=== PATIENT | female | born 1955 | race Caucasian/White ===

== ENCOUNTER 2018-02-17 16:17 | Inpatient (IN) | payer MEDICARE ==
[~2018-02-17] VITALS: Ht 160 cm; Wt 63.0 kg
[~2018-02-17 16:17] MED LIST: ARMOUR THYROID30 M1 PO; ASPIRIN325; BACTRIM DS TAB1 EACH PO; CARVEDILOL6.25 MG PO; DIOVAN HCT 80-1 EACH; HUMALOG100 UNIT/1 SUBQ; HYDROXYZINE HCL25 M1 PO; LEVOTHYROXIN0.025 MG PO; LIPITOR 20 MG T20 M1 PO; NEXIUM40 MG PO; PERCOCET 5-3251 EACH PO; PERCOCET 7.5-31 EACH PO; PLAVIX 75 MG TA75 M1 PO; PRENATAL; SIMVASTATIN40 MG; TRAMADOL 50 MG50 MG PO; VANCOCIN 125 M125 M1 PO; VITAMIN D250000 UNIT PO; XANAX 0.5 MG0.5 MG PO
[2018-02-17 16:21] VITALS: BP 240/111
[2018-02-17 16:38] LABS: ABSOLUTE EOSINOPHILS 0.1 thou/uL (0.0-0.7); ABSOLUTE LYMPHOCYTES 2.2 thou/uL (0.8-5.3); ABSOLUTE MONOCYTES 0.5 thou/uL (0.0-1.2); ABSOLUTE NEUTROPHILS 3.3 thou/uL (1.6-8.1); BASOPHILS 0.6 %; EOSINOPHILS 1.5 %; HEMATOCRIT 40.6 % (37.0-47.0); HEMOGLOBIN 14.2 gm/dL (12.0-15.0); LYMPHOCYTES 35.6 %; MCH 31.9 pg (26.0-34.0); MCHC 34.9 g/dL (28.0-37.0); MCV 91.3 fL (80.0-100.0); MONOCYTES 8.7 %; MPV 7.9 fl. (7.2-11.1); NUCLEATED RBCS 0 /100WBC; PLATELET COUNT* 223 thou/uL (150-400); POLYS 53.6 %; RBC 4.45 mil/uL (4.20-5.00); RDW-CV 12.6 % (10.5-14.5); WBC 6.2 thou/uL (4.0-11.0)
[2018-02-17 16:41] LABS: POC CA IONIZED 4.6 mg/dL (4.5-5.3); POC CREATININE 0.5 mg/dL (0.6-1.3); POC HEMOGLOBIN 14.3 g/dL (12.0-17.0)
[2018-02-17 16:52] LABS: ANION GAP 10 mmol/L (7-16); BUN 9 mg/dL (7-18); CALCIUM 9.3 mg/dL (8.5-10.1); CHLORIDE 96 mmol/L (98-107); CO2 27 mmol/L (21-32); CREATININE 0.8 mg/dL (0.6-1.3); GLUCOSE 393 mg/dL (70-99); POTASSIUM 3.9 mmol/L (3.5-5.1); PROTIME 9.6 Seconds (9.20-11.50); SODIUM 133 mmol/L (136-145)
[2018-02-17 16:56] LABS: ALBUMIN 4.1 g/dL (3.4-5.0); ALKALINE PHOSPHATASE 119 U/L (46-116); SGOT 13 U/L (15-37); SGPT 16 U/L (30-65); TOTAL BILIRUBIN 0.6 mg/dL (<0.1-1.0); TOTAL PROTEIN 8.7 g/dL (6.4-8.2); TROPONIN-I LEVEL <0.06 ng/mL (<0.06)
[2018-02-17] MEDS ORDERED: NITROGLYCERIN0.4 MG SUBLING (16:59)
[2018-02-17] MEDS ORDERED: ASPIRIN325 PO (16:59)
[2018-02-17] MEDS ORDERED: ZOLOFT50 MG PO (16:59)
[2018-02-17] MEDS ORDERED: GABAPENTIN 100100 MG PO (16:59)
[2018-02-17] MEDS ORDERED: PLAVIX 300 MG300 M1 PO (18:33)
[2018-02-17 18:46] VITALS: BP 157/70
[2018-02-17 22:00] VITALS: BP 104/83
[2018-02-17 23:41] VITALS: BP 127/51
[2018-02-18 03:50] VITALS: BP 137/57
[2018-02-18 04:36] LABS: HEMATOCRIT 33.7 % (37.0-47.0); MCH 32.1 pg (26.0-34.0); MCHC 35.3 g/dL (28.0-37.0); MCV 91.1 fL (80.0-100.0); MPV 7.9 fl. (7.2-11.1); RBC 3.7 mil/uL (4.20-5.00); RDW-CV 12.7 % (10.5-14.5); WBC 6.2 thou/uL (4.0-11.0)
[2018-02-18 04:42] LABS: CALCIUM 8.5 mg/dL (8.5-10.1); CREATININE 0.8 mg/dL (0.6-1.3); POTASSIUM 3.3 mmol/L (3.5-5.1)
[2018-02-18 04:43] LABS: HEMOGLOBIN 11.9 gm/dL (12.0-15.0)
[2018-02-18 08:00] VITALS: BP 148/54
--- NOTE | 2018-02-18 10:11 | EKG ---
[place] [address] ELECTROCARDIOGRAM REPORT Name: KATHIEDILIP Room: [address] IN R.#: [id number] Admission: 02/17/18 Attend Phys: Lucinda Cruz MD Discharge: Date of : 53 Report #: [id number] THIS REPORT FOR: //name// [facility] ED Test Date: 2018-02-17 Test Time: 16:49:45 Pat Name: DILIP VÁZQUEZ Department: Room: Gender: F [employer]il [employer] Repair: Lilliana RIOS : 1955 Requested By: Bobby Spangler Order Number: [id number] MD: Mohsen Hill Measurements Intervals [place] Rate: 84 P: 54 GA: 139 QRS: 38 QRSD: 96 T: 45 QT: 360 QTc: 426 Interpretive Statements Sinus rhythm Borderline T wave abnormalities Compared to ECG 01/16/2017 07:57:42 T-wave abnormality now present Electronically Signed On 02-18-2018 10:11:40 CDT by Mohsen Hill [email or web address] <ELECTRONICALLY SIGNED> By: Noam Hill MD, [facility] 02/18/18 1011 1649 [id number] Noam Hill MD, [facility] /EPI
[2018-02-18 12:00] VITALS: BP 130/69
[2018-02-18 16:23] VITALS: BP 124/59
[2018-02-18 20:00] VITALS: BP 146/50
[2018-02-19] VITALS (7 sets, daily range): BP systolic 120–180; BP diastolic 43–68
[2018-02-19 04:48] LABS: HEMATOCRIT 34.5 % (37.0-47.0); HEMOGLOBIN 12.1 gm/dL (12.0-15.0); MCH 31.8 pg (26.0-34.0); MCV 90.8 fL (80.0-100.0); MPV 8.2 fl. (7.2-11.1); RBC 3.8 mil/uL (4.20-5.00); RDW-CV 12.5 % (10.5-14.5); WBC 8.4 thou/uL (4.0-11.0)
[2018-02-19 05:04] LABS: ALBUMIN 2.9 g/dL (3.4-5.0); CALCIUM 8.4 mg/dL (8.5-10.1); CREATININE 0.7 mg/dL (0.6-1.3); MAGNESIUM 1.6 mg/dL (1.8-2.4); POTASSIUM 4.1 mmol/L (3.5-5.1); TOTAL BILIRUBIN 0.3 mg/dL (<0.1-1.0); TOTAL PROTEIN 5.9 g/dL (6.4-8.2)
[2018-02-19] MEDS ORDERED: COREG25 MG PO (12:27)
[2018-02-20 03:47] VITALS: BP 186/80
[2018-02-20 08:00] VITALS: BP 125/60
[2018-02-20 11:38] VITALS: BP 123/60
[2018-02-20] MEDS ORDERED: CARVEDILOL12.5 MG PO (11:49)
[2018-02-20 13:51] VITALS: BP 110/47
[2018-02-20 15:40] VITALS: BP 109/40
--- NOTE | 2018-02-20 16:47 | 2DMMODE ---
[place] [address] 2 D/M-MODE ECHOCARDIOGRAM Name: DILIP VÁZQUEZ JALIL Room: [address] IN [facility]#: [id number] Admission: 02/17/18 Attend Phys: Lucinda Cruz, Discharge: Date of : 53 Date of Service: 02/20/18 1526 Report #: [id number] THIS REPORT FOR: //name// APPROVED REPORT Study performed: 02/20/2018 14:12:20 EXAM: Comprehensive 2D, Doppler, and color-flow Echocardiogram Patient Location: In-Patient Room #: [facility] Status: routine BSA: 1.70 HR: 62 bpm BP: 125/60 mmHg Rhythm: NSR Other Information Study Quality: Good Indications CVA/TIA CAD Echo Enhancing Agent Indication: Rule out Shunt Agent(s) / Amount(s) Used: Agitated Saline 10 cc 2D Dimensions LVEF(%): 71.35 (>50%) IVSd: 11.40 (7-11mm) LVOT Diam: 19.85 (18-24mm) LVDd: 40.26 mm PWd: 10.06 (7-11mm) Ascending Ao: 24.30 (22-36mm) LVDs: 24.10 (25-40mm) Aortic Root: 26.01 mm Benz's LVEF: 71.35 % Volumes Left Atrial Volume (Systole) LA ESV Index: 27.30 mL/m2 Aortic Valve AoV Peak Ahmet.: 1.63 m/s AO Peak Gr.: 10.57 mmHg LVOT Max P.67 mmHg AO Mean Gr.: 5.25 mmHg LVOT Mean P.71 mmHg LVOT Max V: 0.96 m/[place] [address] 2 D/M-MODE ECHOCARDIOGRAM Name: DILIP VÁZQUEZ Room: [address] IN M.R.#: [id number] Admission: 02/17/18 Attend Phys: Lucinda Cruz, Discharge: Date of : 53 Date of Service: 02/20/18 1526 Report #: [id number] AO V2 VTI: 32.77 cm LVOT Mean V: 0.60 m/s EDUARDO (VTI): 1.86 cm2 LVOT V1 VTI: 19.66 cm Mitral Valve E/A Ratio: 0.97 MV Decel. Time: 242.42 ms MV E Max Ahmet.: 0.76 m/s MV PHT: 70.30 ms MVA (PHT): 3.13 cm2 TDI E/Lateral E': 9.50 E/Medial E': 10.86 Medial E' Ahmet.: 0.07 m/s Lateral E' Ahmet.: 0.08 m/s Pulmonary Valve PV Peak Ahmet.: 1.18 m/s PV Peak Gr.: 5.58 mmHg Left Ventricle The left ventricle is normal size. There is normal LV segmental wall motion. Borderline concentric left ventricular hypertrophy. Left ventricular systolic function is normal. The left ventricular ejection fraction is within the normal range. LVEF is 65%. The left ventricular diastolic function is normal. Right Ventricle The right ventricle is normal size. The right ventricular systolic function is normal. Atria The left atrium size is normal. Interatrial septum is intact without evidence of ASD or PFO. Right atrium is dilated. Aortic Valve Mild aortic valve sclerosis. No aortic regurgitation is present. No hemodynamically significant valvular aortic stenosis. Mitral Valve The mitral valve is normal in structure. Trace mitral regurgitation. No evidence of mitral valve stenosis. Tricuspid Valve The tricuspid valve is normal in structure. Trace tricuspid regurgitation. Unable to assess PA pressure[place] [address] 2 D/M-MODE ECHOCARDIOGRAM Name: DILIP VÁZQUEZ Room: [address] IN ..#: [id number] Admission: 02/17/18 Attend Phys: Lucinda Cruz, Discharge: Date of : 53 Date of Service: 02/20/18 1526 Report #: [id number] The pulmonary valve is normal in structure. Trace pulmonic regurgitation. Great Vessels The aortic root is normal in size. IVC is normal in size and collapses with >50% inspiration Pericardium There is no pericardial effusion. <Conclusion> The left ventricle is normal size. Borderline concentric left ventricular hypertrophy. Left ventricular systolic function is normal. The left ventricular ejection fraction is within the normal range. LVEF is 65%. The right ventricle is normal size. The left atrium size is normal. Mild aortic valve sclerosis. No aortic regurgitation is present. No hemodynamically significant valvular aortic stenosis. The mitral valve is normal in structure. Trace mitral regurgitation. The tricuspid valve is normal in structure. IVC is normal in size and collapses with >50% inspiration There is no pericardial effusion. There is normal LV segmental wall motion. <ELECTRONICALLY SIGNED> By: Jose Armando Heaton MD, FACC 02/20/18 1526 1526 1526 Jose Armando Heaton MD, FACC /INF
[2018-02-20 21:35] VITALS: BP 118/35
[2018-02-21 00:11] VITALS: BP 144/54
[2018-02-21 04:00] VITALS: BP 153/53
[2018-02-21 08:00] VITALS: BP 160/47
[2018-02-21 12:27] VITALS: BP 107/56
[2018-02-21 13:57] VITALS: BP 107/56
[2018-02-21 17:09] VITALS: BP 110/43
--- NOTE | 2018-02-21 21:54 | CON ---
[address] [address] CONSULTATION Name: DILIP VÁZQUEZ JALIL Room: [address] IN M.R.#: [id number] Admission: 02/17/18 Attend Phys: Lucinda Cruz MD Discharge: 02/21/18 Date of : 53 Report #: [id number] THIS REPORT FOR: //name// CC: JEANNE physician/PCP Lucinda Cruz DATE OF SERVICE: 02/17/2018 HISTORY OF PRESENT ILLNESS: This is a 62-year-old female patient who was evaluated by me as a part of the stroke protocol. I initially got the first call from Dr. Spangler, the Emergency Room physician. He indicated that the patient is emotional and gives the history that she had a stroke in the past, but he cannot find any record. He indicated that patient's symptoms started at 3:00 and she was in 3-hour window with an NIH stroke scale of 9. I was at home and I told him that I will come and see the patient, but because of [place] traffic, it will take me a while to reach this place and if she is in 3-hour window and the finding of the stroke is reasonable, then he should go ahead and give TPA to the patient if there is no exclusion criteria. He indicated that he is going to proceed with TPA after talking to the family. Then, I got second call from Dr. Spangler and he indicated that the patient and the family has changed the time and the time of onset was actually at 1:30 p.m. Therefore, she was outside the window for TPA, but she was still within the timeframe for 4-1/[address] Spangler to talk to the family and if they are agreeable and if the stoke symptoms are reasonably definite, he should proceed with TPA for 3 and 4-1/2 hour window, but if there is no exclusion criteria. Then, I got another call on my way to the hospital from Dr. Spangler and he indicated that he did not give TPA because the patient was on Plavix. I discussed with him on the phone that that is not a contraindication for TPA, but he indicated the exclusion criteria sheet indicates that is an exclusion criteria. When I came back and looked at it, it would appear that is a misunderstanding because the sheet list has an oral anticoagulant as a contraindication and Plavix is not considered an oral anticoagulant. However, she is a diabetic and she does have a prior history of stroke and that those patients were excluded in the original protocol for 4-1/2 hour and the benefits of the 4-1/2 hour is limited, but is usually given if the family wants to proceed with that. I did start to see the patient immediately, but because of [place] hour traffic and an accident on [address], it took a while for me to reach here. When I reached here, I talked to the patient's and the patient. They do not agree with everything. In fact, they do not agree with the timing, but after talking to them for a long time, it would appear that this patient's time of onset should be considered 1:30. She woke up, she was very emotional. She did not remember much. She was still able to talk. She indicates that she had numbness on the right side because of her prior stroke. She did not fully recover from it. That numbness had become worse. Her memory has also become [facility] [address] [place] [address] CONSULTATION Name: DILIP VÁZQUEZ Room: [address] IN [place]#: [id number] Admission: 02/17/18 Attend Phys: Lucinda Cruz MD Discharge: 02/21/18 Date of : 53 Report #: [id number] worse, but that was becoming better. She also indicate that she has some speech deficit again that has become worse, but now is becoming better. Her last stroke was at [facility]. During that stroke, she was given TPA. She took a long time to recover and the recovery was partial. She also has vision problem with the eyes. That has been since the last stroke, which was about 2 years ago or so. The patient does indicate that she has insulin-dependent diabetes mellitus. She has a history of CVA. She had some TIAs since then. More history in that regard is not clear. This was her relevant 14-point review of system. History has to be taken in a hurry because of the time constraint. She also has a history of neuropathy in the lower extremities. PAST MEDICAL HISTORY: Positive for stroke. FAMILY HISTORY: Negative for any early age stroke. SOCIAL HISTORY: She does not smoke. PHYSICAL EXAMINATION: The patient's examinations indicate that the patient is alert and responsive. She is very emotional still, but getting better. She can talk, but she does agitate. I do not know what her baseline is in that regard. She still think her memory is poor. Cranial nerve examination 2-12 was carried out and she does appear to having some hemianopsia. I talked to the radiologist looking at the CT scan and apparently, she does have a history of bilateral occipital lobe and left parietal lobe stroke, though I suspect these are old and she thinks it is old. She does have diminished position sense on the right side as compared to the left side, but to some extent, it is diminished on both sides. She moves right side reasonably well. She may have a slight right facial palsy. Her blood pressure is 157/70, respiration is 13, pulse is 80. Her white count was 6.2. Her sodium is trace low at 133. I reviewed the CT angiogram with the radiologist and that showed old changes, but these showed that there are no new changes and CT perfusion does not show any evidence of ischemia. I had multiple talks with the patient and the family. As mentioned above, the patient was seen by Emergency Room physician, Dr. Spangler initially. She was not in a 3-hour window for TPA. She was in 4-1/2 hour window and I had recommended proceeding with the TPA, but as mentioned above, Dr. Spangler decided not to proceed with TPA because of the patient being on Plavix in a 4-1/2 hour window because of the circumstances described above. By the time, I was called with that information, even 4-1/2 hour window would have been up to. In any event, a prior stroke in diabetic is one of the exclusion criteria for 4-1/2 hour window. I discussed with them that there is nothing intervention we can do. She is not a thrombectomy candidate, but she should be admitted. We will get a stat MRI done in this patient. I do not know why this patient [place] [address] CONSULTATION Name: STEPHAN VÁZQUEZSAM LARIOSE Room: [address] IN M.R.#: [id number] Admission: 02/17/18 Attend Phys: Lucinda Cruz MD Discharge: 02/21/18 Date of : 53 Report #: [id number] past. She has residual deficit and I am not even sure how much if any is new. She thinks she had significant aggravation of deficit, but she is either close to baseline or at the baseline. We will monitor her blood pressure closely. I will go ahead and do an MRI of the brain stat in this patient and that has already been ordered by Dr. Spangler. The patient's part of the stroke scale is from her prior deficit and from all indication, it looks like that lot of deficit is old, but I think we will work up further to see why she is having the strokes. I discussed all with the patient's family in detail. I talked to the family and they are agreeable with this plan. Thank you very much for this referral. <ELECTRONICALLY SIGNED> By: Binh Barger MD 02/21/18 2154 [id number] Barger MD /nt
--- NOTE | 2018-02-21 21:54 | EEG ---
[address] [address] EEG STUDY REPORT Name: DILIP VÁZQUEZ Room: [address] IN M.R.#: [id number] Admission: 02/17/18 Attend Phys: Lucinda Cruz MD Discharge: 02/21/18 Date of : 53 Report #: [id number] THIS REPORT FOR: //name// CC: [facility] physician/PCP Lucinda Cruz DATE OF SERVICE: 02/20/2018 This patient had an episode of speech difficulty, and she had a previous history of CVA. MRI did not demonstrate any acute CVA. EEG is being done to exclude the possibility of any nonconvulsive seizure. The patient's EEG was done by placing the electrodes by standard 10/20 system of electrode placement. Both referential and sequential montages were used for recording. Background activity in this patient's EEG was about 10 Hz and 40 microvolt. It is a symmetrical activity. The patient went to sleep that is associated with bilaterally symmetrical sleep spindle and vertex sharp waves. Photic stimulation was unremarkable. Throughout the record, no active epileptiform activity was noticed. IMPRESSION: This patient's EEG is intermixed with some theta range slowing on both sides. That is a nonspecific abnormality, which can occur with encephalopathy, effect of psychotropic medication, dementia, etc. No active epileptiform activity was noticed during this record. Thank you very much for this referral. <ELECTRONICALLY SIGNED> By: Binh Barger MD 02/21/18 2154 1615 1713PMD edis Salguero
== END 2018-02-21 17:45 | disposition home or self-care (01) | DRG 637 ==
LOC: M.ERS 16:17 → M.2W 17:54 → M.TBA-ER 17:54 → M.2W 18:44
PROVIDERS: Emergency Medicine; Psychiatry & Neurology Neuromuscular Medicine; ADMIT Internal Medicine
PROC: 4A00X4Z Measurement of Central Nervous Electrical Activity, External Approach (ICD-10-PCS; principal; 2018-02-20)
DX: E11.65 Type 2 diabetes mellitus with hyperglycemia (principal); G93.49 Other encephalopathy; E87.1 Hypo-osmolality and hyponatremia; I69.398 Other sequelae of cerebral infarction; I10 Essential (primary) hypertension; E78.5 Hyperlipidemia, unspecified; F03.90 Unspecified dementia, unspecified severity, without behavioral disturbance, psychotic disturbance, mood disturbance, and anxiety; I25.10 Atherosclerotic heart disease of native coronary artery without angina pectoris; R51 Headache; Z79.01 Long term (current) use of anticoagulants; Z98.1 Arthrodesis status; Z90.49 Acquired absence of other specified parts of digestive tract; Z79.899 Other long term (current) drug therapy; Z79.4 Long term (current) use of insulin; Z79.82 Long term (current) use of aspirin; Z88.6 Allergy status to analgesic agent; Z88.8 Allergy status to other drugs, medicaments and biological substances; Z83.3 Family history of diabetes mellitus; I69.322 Dysarthria following cerebral infarction

== ENCOUNTER 2018-03-21 21:34 | Emergency (ER) | payer OTHER ==
[~2018-03-21] VITALS: Ht 157.5 cm; Wt 59.9 kg
[~2018-03-21 21:34] MED LIST changes: +ASPIRIN325 PO; +CARVEDILOL12.5 MG PO; +COREG25 MG PO; +GABAPENTIN 100100 MG PO; +NITROGLYCERIN0.4 MG SUBLING; +PLAVIX 300 MG300 M1 PO; +ZOLOFT50 MG PO
[2018-03-21] MEDS ORDERED: HYDROCODON-ACE1 EAC7 PO (22:36)
[2018-03-21 22:40] VITALS: BP 199/47
== END 2018-03-21 22:40 | disposition home or self-care (01) ==
LOC: M.ERS 21:34
DX: S92.511A Displaced fracture of proximal phalanx of right lesser toe(s), initial encounter for closed fracture (principal); E11.9 Type 2 diabetes mellitus without complications; I10 Essential (primary) hypertension; Z90.49 Acquired absence of other specified parts of digestive tract; Z86.73 Personal history of transient ischemic attack (TIA), and cerebral infarction without residual deficits; Z79.4 Long term (current) use of insulin; Z88.5 Allergy status to narcotic agent; Z88.8 Allergy status to other drugs, medicaments and biological substances; X58.XXXA Exposure to other specified factors, initial encounter; Y93.89 Activity, other specified; Y92.89 Other specified places as the place of occurrence of the external cause; Y99.8 Other external cause status

== ENCOUNTER 2018-05-29 03:53 | Inpatient (IN) | payer OTHER ==
[~2018-05-29] VITALS: Ht 160 cm; Wt 59.0 kg
[~2018-05-29 03:53] MED LIST changes: +HYDROCODON-ACE1 EAC7 PO
[2018-05-29 03:56] VITALS: BP 221/84
[2018-05-29 04:18] LABS: ABSOLUTE EOSINOPHILS 0.1 thou/uL (0.0-0.7); ABSOLUTE LYMPHOCYTES 3.2 thou/uL (0.8-5.3); ABSOLUTE MONOCYTES 0.6 thou/uL (0.0-1.2); ABSOLUTE NEUTROPHILS 2.4 thou/uL (1.6-8.1); BASOPHILS 0.6 %; EOSINOPHILS 1.1 %; HEMATOCRIT 35.4 % (37.0-47.0); HEMOGLOBIN 12.4 gm/dL (12.0-15.0); LYMPHOCYTES 50.3 %; MCH 32.1 pg (26.0-34.0); MCHC 35.1 g/dL (28.0-37.0); MCV 91.3 fL (80.0-100.0); MONOCYTES 9.3 %; MPV 7.9 fl. (7.2-11.1); NUCLEATED RBCS 0 /100WBC; PLATELET COUNT* 206 thou/uL (150-400); POLYS 38.7 %; RBC 3.88 mil/uL (4.20-5.00); WBC 6.3 thou/uL (4.0-11.0)
[2018-05-29 04:27] LABS: ANION GAP 7 mmol/L (7-16); BUN 16 mg/dL (7-18); CALCIUM 8.9 mg/dL (8.5-10.1); CHLORIDE 97 mmol/L (98-107); CO2 29 mmol/L (21-32); CREATININE 0.8 mg/dL (0.6-1.3); GLUCOSE 404 mg/dL (70-99); POTASSIUM 4.1 mmol/L (3.5-5.1); SODIUM 133 mmol/L (136-145)
[2018-05-29 04:37] LABS: ALBUMIN 3.9 g/dL (3.4-5.0); ALKALINE PHOSPHATASE 97 U/L (46-116); LIPASE 82 U/L (73-393); MAGNESIUM 1.6 mg/dL (1.8-2.4); NT-PRO BRAIN NAT PEPTIDE 345 pg/mL (<300); SGOT 14 U/L (15-37); SGPT 21 U/L (30-65); TOTAL BILIRUBIN 0.3 mg/dL (<0.1-1.0); TOTAL PROTEIN 7.6 g/dL (6.4-8.2); TROPONIN-I LEVEL <0.06 ng/mL (<0.06)
--- NOTE | 2018-05-29 07:20 | NUR ---
DR. MENDOZA IN PT ROOM
[2018-05-29 08:30] VITALS: BP 108/46
[2018-05-29 08:32] VITALS: BP 181/49
--- NOTE | 2018-05-29 10:45 | EKG ---
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[facility] : 1955 Requested By: Minh Harp Order Number: [id number] MD: Francis Bueno Measurements Intervals [place] Rate: 69 P: 74 ND: 149 QRS: 40 QRSD: 78 T: 86 QT: 460 QTc: 493 Interpretive Statements Sinus rhythm Nonspecific T abnormalities, lateral leads Borderline prolonged QT interval Compared to ECG 02/17/2018 16:49:45 No significant changes Electronically Signed On 05-29-2018 10:45:44 CDT by Francis Bueno [email or web address] <ELECTRONICALLY SIGNED> By: Francis Bueno MD, [facility] 05/29/18 1045 0358 0358 Francis Bueno MD, [facility] /EPI
[2018-05-29 12:00] VITALS: BP 173/72
--- NOTE | 2018-05-29 13:06 | NUR ---
WOUND CARE NOTE: CONSULT RECEIVED FOR RLE 3RD DIGIT WOUND. PATIENT PRESENTS WITH A FULL THICKNESS ULCERATION TO THE MEDIAL ASPECT OF THE RIGHT 3RD TOE. PATIENT ADMITS THAT THIS WOUND HAS BEEN PRESENT FOR SEVERAL WEEKS. WOUND MEASURES 0.2X0.2X0.2. RED, MOIST WOUND BED. DRIED SANGUINEOUS DRAINAGE NOTED ON RESHMA-WOUND SKIN. ABLE TO CLEANSE OFF. DISTAL ASPECT OF RESHMA-WOUND WITH SKIN FLAP. CLEANSED WOUND WITH WOUND CLEANSER, PATTED DRY. APPLIED OPTIFOAM AG. PALPABLE PEDAL PULSES. HAIR GROWTH NOTED. PATIENT ADMITS TO HAVING HIGH BLOOD SUGARS, EVEN BEFORE SHE WAS ADMITTED TO THE HOSPITAL. EDUCATED PATIENT ON NOT DOING FOOT SOAKS. PATIENT STATED SHE DOES THEM AT HOME, COMMUNICATED UNDERSTANDING ON EDUCATION. RECOMMEND TIGHT BLOOD GLUCOSE CONTROL FOLLOW UP IN WOUND CENTER UPON DISCHARGE ENCOURAGE GOOD NUTRTION/HYDRATION
[2018-05-29 16:19] VITALS: BP 133/37
--- NOTE | 2018-05-29 16:24 | CARDNUC ---
[place] [address] CARDIAC NUCLEAR IMAGING REPORT Name: KATHIEDILIP JALIL Room: [address] IN [facility]#: [id number] Admission: 05/29/18 Attend Phys: Sammy Camp, Discharge: Date of : 53 Date of Service: 05/29/18 1623 Report #: [id number] THIS REPORT FOR: //name// APPROVED REPORT Imaging Protocol: Rest Tc-99m/Stress Tc-99m 1 day Study performed: 05/29/2018 10:56:00 Indication: Chest pain Patient Location: In-Patient Room #: 227 Stress Tech: Vikki Dueñas Stress Nurse: Sarah Gan RN NM Tech:MOHAMUD Pendleton Ht: 5 ft 3 in Wt: 130 lbs BSA: 1.61 m2 HR: 59 bpm BP: 193/85/ mmHg BMI: 23.02 Rhythm: NSR Medical History Medical History: CAD s/p CABG, Hyperlipidemia, HTN, CAD s/p AL Allergies: CODEINE, ZOMEG Cardiac Risk Factors: HTN, Hyperlipidemia Previous Cardiac Procedures: CABG, PCI, Myocardial infarction Exercise History: Sedentary Physical Disabilities: Knees Resting Data Rest SPECT myocardial perfusion imaging was performed in supine position 30 minutes following the intravenous injection of 12.0 mCi of Tc-99m Sestamibi. Time of rest injection: 1350 Date: 05/29/2018 Time of rest imagin The images were gated to evaluate regional wall motion and calculate left ventricular ejection fraction. Administration Route: IV Pharmacologic Stress Pharmacologic stress test was performed by injecting Regadenoson 0.4 mg IV push over 10-15 seconds immediately followed by the intravenous injection of 34.1 mCi of Tc-99m Sestamibi. Time of stress injection: 1525 [place] [address] CARDIAC NUCLEAR IMAGING REPORT Name: DILIP VÁZQUEZ Room: [address] IN ..#: [id number] Admission: 05/29/18 Attend Phys: Sammy Camp, Discharge: Date of : 53 Date of Service: 05/29/18 1623 Report #: [id number] Time of stress imagin Administration Route: IV Gated Stress SPECT was performed 40 minutes after stress injection. The images were gated to evaluate regional wall motion and calculate left ventricular ejection fraction. Stress only was performed in the Supine position. Stress Test Details Stress Test: Pharmacologic stress testing performed using 0.4 mg of regadenoson per 5 mL given IV over 10 seconds. Reason for pharmacologic stress test: physical limitation. HR Max Heart Rate (APMHR): 157 bpm Resting HR: 59 bpm Target HR (85% APMHR): 133 bpm Recovery HR: 69 bpm HR response to stress: Normal HR response to stress BP Resting BP: 193/85 mmHg Recovery BP: 114/56 mmHg BP response to stress: Normal blood pressure response to stress. ECG Resting ECG: , Sinus Rhythm, NSSTT changes Stress ECG: Sinus Rhythm ST Change: None Recovery ECG: Sinus Rhythm, NSSTT changes Recovery ST Change: None Clinical Reason for Termination: Completed protocol Stress Symptoms: Headache Exercise capacity: 1.00 METs Stress ECG Conclusion negative ecg Study Quality Study: Good Artifact: No artifact Study Data At rest, the left ventricular ejection fraction was 65%.. [place] [address] CARDIAC NUCLEAR IMAGING REPORT Name: DILIP VÁZQUEZ Room: [address] IN [facility]#: [id number] Admission: 05/29/18 Attend Phys: Sammy Camp, Discharge: Date of : 53 Date of Service: 05/29/18 1623 Report #: [id number] Post stress, the left ventricular ejection was 71%.. SSS: 9 SRS: 2 SDS: 7 TID = 1.17. Perfusion Review of rest data reveals normal perfusion, without perfusion defects.Imaging obtained following vasodilator stress demonstrate a similar, uniform uptake of tracer without defects. LVEDV is normal.No segental wall motion abnormality seen. Images were reviewed using Metaset[employer]. Wall Motion normal all segments Nuclear Conclusion ECG Findings: negative for ischemia Clinical Findings: negative for ischemia Nuclear Findings: negative for ischemia Exercise Capacity: not assessed Left Ventricular Function: normal Risk Study: low Negative perfusion nuclear stress test for ischemia/infarct. <Conclusion> negative ecg <ELECTRONICALLY SIGNED> By: Oziel Eddy MD, FACC 05/29/18 1623 1623 1623 Oziel Eddy MD, FACC /INF
--- NOTE | 2018-05-29 18:45 | NUR ---
PT VSS THIS SHIFT, DIASTOLIC BP IS LOW, BUT PT STATES THIS IS BASELINE. PT UP WITH 1 THIS SHIFT-PT UNSTEADY AND SHUFFLES. PT REPORTS USING CANE WITH AMBULATION AT HOME. WALKER IN PT ROOM. PT WENT FOR STRESS TEST AND MRI THIS SHIFT, STRESS TEST RESULTS WERE NEGATIVE-DR MENDOZA INFORMED. PT TOLERATING DIET THIS EVENING AND ATE BOTH A BOXED LUNCH AND DINNER WHEN IT ARRIVED. PT HAS 1+ PULSES ON BILATERAL UPPER AND LOWER EXTREMITIES. PT INSULIN HELD DUE TO NPO STATUS PRIOR TO PROCEDURE. PT REPORTS DULL ACHING CHEST PAIN, BUT STATES IT IS TOLERABLE WITH THE PAIN MEDICATIONS. PT IS SR ON THE MONITOR THIS SHIFT PT ABLE TO AMBULATE TO BATHROOM WITH STAFF AND FALL PXN IN PLACE. WILL CONTINUE TO ASSESS AND MONITOR.
[2018-05-29 20:28] VITALS: BP 151/62
[2018-05-30] VITALS: BP 101/40
[2018-05-30 04:00] VITALS: BP 121/46
[2018-05-30 05:03] LABS: HEMATOCRIT 35.2 % (37.0-47.0); HEMOGLOBIN 12.1 gm/dL (12.0-15.0); MCH 31.8 pg (26.0-34.0); MCHC 34.5 g/dL (28.0-37.0); MCV 92.1 fL (80.0-100.0); MPV 8.4 fl. (7.2-11.1); RBC 3.82 mil/uL (4.20-5.00); WBC 8.5 thou/uL (4.0-11.0)
--- NOTE | 2018-05-30 05:27 | NUR ---
PT CURRENTLY RESTING COMFORTABLE IN BED. PT ABLE TO AMBULATE TO BATHROOM EARLIER, WEAK BUT NO C/O SOB. PT SR/SB ON MONITOR. BEEN MONITORING PT BLOOD GLUCOSE Q4H.
[2018-05-30 05:39] LABS: CALCIUM 8.8 mg/dL (8.5-10.1); MAGNESIUM 1.6 mg/dL (1.8-2.4); POTASSIUM 4.3 mmol/L (3.5-5.1)
[2018-05-30 08:00] VITALS: BP 117/59
--- NOTE | 2018-05-30 11:15 | CON ---
[address] [address] CONSULTATION Name: OSIEL VÁZQUEZA JALIL Room: [place] [address] ADM IN M.R.#: [id number] Admission: 05/29/18 Attend Phys: Sammy Camp MD Discharge: Date of : 53 Report #: [id number] THIS REPORT FOR: //name// CC: Sammy Mccollum DATE OF SERVICE: 05/29/2018 HISTORY OF PRESENT ILLNESS: The patient is a 62-year-old white female who I was asked to see in the hospital today after she complained of chest pain. All of the old records are not available. The history was obtained from the patient who has some memory loss. The patient has a long history of diabetes, hypertension, and hyperlipidemia. She had a history of coronary artery stents. She eventually underwent 2-vessel bypass surgery at [place] in 2006. She has been followed by a receiver bulk system at [place] since that time. She has also had a previous stroke. She is not very active because of the stroke. She was doing well until last night, she awakened and had a tightness in her chest and some left arm discomfort. She notes some shortness of breath, but no diaphoresis. She took a nitroglycerin that did not seem to help. Her brought her to the emergency room last night where she was admitted. She denied the pain being related to food. She has had no belch with the episode. She has had no recent fever. She has been coughing some. The pain was not related to coughing. She has had no blood in stool. She denied any trauma to her chest or rash. She does become short of breath with exertion. She notes occasional fluttering in her heart, but no recent syncope. PAST MEDICAL HISTORY: Significant for hysterectomy, bladder tack, cataract surgery, cholecystectomy, ankle surgery, hypertension, diabetes, and hyperlipidemia. She had a previous stroke a couple of years ago with right-sided weakness. MEDICATIONS: Include aspirin, Lipitor, carvedilol, Plavix, insulin, Synthroid, and sertraline. ALLERGIES: She has intolerance to CODEINE. FAMILY HISTORY: Positive for heart disease. SOCIAL HISTORY: She is . She lives with her in [place]. No smoking or alcohol abuse. REVIEW OF SYSTEMS: She has had no history of asthma, peptic ulcer disease, or liver disease. She has had kidney stones. No cancer. No psychiatric illness. PHYSICAL EXAMINATION: [address] [place] [address] CONSULTATION Name: DILIP VÁZQUEZ Room: [address] IN [facility]#: [id number] Admission: 05/29/18 Attend Phys: Sammy Camp MD Discharge: Date of : 53 Report #: [id number] GENERAL: Revealed an elderly female, lying in bed, she appeared in no distress. VITAL SIGNS: Blood pressure was 140/80, pulse 60, she is afebrile. HEENT: She was anicteric. Conjunctivae are pink. Mucous members are moist. NECK: Veins nondistended. No carotid bruits. Neck is supple. CHEST: Clear to auscultation. HEART: Regular rate and rhythm. ABDOMEN: Soft and nontender. EXTREMITIES: Had no edema. Dorsalis pedis pulse 1+ bilaterally. SKIN: Cool and dry. NEUROLOGIC: Nonfocal. LYMPH: No adenopathy. MUSCULOSKELETAL: No joint effusion. ECG showed a sinus rhythm, nonspecific T-wave changes, appeared to be QT prolongation. Her workup, she had portable chest x-ray that showed no acute abnormality. Previous lab work, sodium 133, potassium 4.1, BUN 16, creatinine 0.8. Liver function studies were normal. Troponin 0.06. BNP 345. TSH 6.0. Her white blood cell count 6.3 and hemoglobin 12.4. IMPRESSION AND RECOMMENDATIONS: 1. Chest pain. Recommend Lexiscan Cardiolite. 2. Previous coronary artery bypass surgery. 3. Previous stroke. The patient is on aspirin and Plavix. 4. Hypertension. The patient is on a beta jhonny. 5. Hyperlipidemia. The patient is on a statin drug. 6. Diabetes. 7. History of kidney stones. <ELECTRONICALLY SIGNED> By: Francis Bueno MD, [facility] 05/30/18 1115 1015 [id number] Bueno MD, [facility] /nt
[2018-05-30 11:37] VITALS: BP 125/55
--- NOTE | 2018-05-30 13:28 | NUR ---
Nutrition: Pt seen for nsg risk 2 points. Pt stated she has lost ~40# in one year d/t less of an appetite. She stated she has had some vomiting after meals as well, but not for a couple of weeks now. She feels her wt has leveled off. She likes the weight she is at and is glad she lost some wt. Current wt: 130#. BMI: 23. Alb 3.9, BG 200s now 115. Toe wound. RX: insulin. H/o uncontrolled DM, CVA, HTN, memory loss. She stated her appetite is good now. She had lunch in front of her during visit, but had not started eating yet. No nutrition interventinos needed at this time. She stated she would follow up with her PCP if the vomiting started again. Mild risk.
[2018-05-30 15:24] VITALS: BP 82/55
--- NOTE | 2018-05-30 15:47 | NUR ---
CM SPOKE TO THE PATIENT TO DISCUSS HOME SITUATION, DISCHARGE PLANNING, AND TO INFORM OF THE ROLE OF CM. PATIENT ALERT, ORIENTED, AND INDEPENDENT WITH ADL'S. PATIENT RESIDES AT HOME WITH SPOUSE. PATIENT OWNS A CANE AND INFORMS THAT SHE USES IT OCCATIONALLY. PATIENT HAS A HX OF HH, BUT COULD NOT RECALL THE NAME. CM WILL REMAIN AVIALABLE TO ASSIST AND FOLLOW NEEDED.
--- NOTE | 2018-05-30 16:00 | NUR ---
BP LOW. ASYMPTOMATIC
--- NOTE | 2018-05-30 16:50 | NUR ---
PT UP IN ROOM WITH SB ASSIST. PT DENIES CP OR SOA. PT REPORTS LEFT ARM PAIN. TOLERATING PO WELL. NSR ON MONITOR
[2018-05-30 19:30] VITALS: BP 108/66
[2018-05-31] VITALS: BP 114/49
[2018-05-31 04:00] VITALS: BP 130/63
--- NOTE | 2018-05-31 08:03 | NUR ---
RECEIVED REPORT AND ASSUMED CARE AT 1900. VSS. CARDIAC MONITORING IN PLACE. PT REPORTED CHRONIC PAIN FROM HER NEUROPATHY. DENIED NEED FOR PRN PAIN MEDICATION. ASSESSMENT COMPLETED CHARTED. DISCUSSED PLAN OF CARE WITH PT, VERBALIZED UNDERSTANDING. MEDICATION ADMIN PER EMAR. PT UP AD ALISIA IN ROOM, ON RA. PT REPORTED DIARRHEA R/T HER HX OF IBS. STATED THERE WAS NOTHING THAT SHE TAKES TO RESOLVE, JUST HAVE TO "LET IT RUN IT'S COURSE". BED LOCKED IN LOWEST POSITION, CALL LIGHT WITHIN REACH. HOURLY ROUNDING COMPLETED AND ALL NEEDS MET. NURSING WILL CONTINUE TO MONITOR
[2018-05-31 08:40] VITALS: BP 161/66
--- NOTE | 2018-05-31 10:18 | NUR ---
RECEIVED REPORT FROM [facility]ITH AND ASSUMED CARE OF PT @ 0934.PT IS A/O,VSS,TRACING SR ON THE MONITOR.LUNG SOUNDS ARE CLEAR.LAST BM WAS TODAY.PT STATES SHE IS HAVING MULTIPLE LOOSE STOOLS BUT IS NORMAL FOR HER TO HAVE FLARE UPS.IV PATENT AND SALINE LOCKED.PT IS CALM AND COOPERATIVE WITH C/O PAIN IN FOOT-RELIEF WITH MEDICATIONS.PT IS UP SBA IN ROOM.PT LEFT RESTING AT EDGE OF BED WITH CALL LIGHT AND FALL PRECAUTIONS IN PLACE.WILL CONTINUE TO MONITOR.
[2018-05-31] MEDS ORDERED: SYNTHROID50 MCG PO (11:29)
[2018-05-31 12:05] VITALS: BP 104/40
[2018-05-31 12:12] VITALS: BP 104/40
--- NOTE | 2018-05-31 12:13 | NUR ---
ORDERS NOTED FOR DC HOME WITH HH. MET WITH PT, SHE HAD NO PREFERENCE FOR HH, DISCUSSED OPTIONS, [facility]OSE [facility]. CALLED AND FAXED ORDERS TO THEM. PT HAS WALKER AND CANE AT HOME. DENIES OTHER NEEDS
--- NOTE | 2018-05-31 16:41 | NUR ---
PT OK FOR DISCHARGE.PAPERWORK COMPLETED AND GIVEN TO PT.SCRIPTS GIVEN WITH EDUCATION.IV REMOVED.HEART MONITOR REMOVED AND RETURNED TO NURSING STATION.ALL PERSONAL BELONGINGS PACKED AND TAKEN WITH PT.HOME HEALTH SET UP BY CASE MANAGEMENT.PT WAITING IN ROOM FOR RIDE.
--- NOTE | 2018-06-05 17:33 | CON ---
[address] [address] CONSULTATION Name: DILIP VÁZQUEZ Room: [address] IN M.R.#: [id number] Admission: 05/29/18 Attend Phys: Sammy Camp MD Discharge: 05/31/18 Date of : 53 Report #: [id number] THIS REPORT FOR: //name// CC: Sammy Camp [facility] DATE OF SERVICE: 05/29/2018 HISTORY OF PRESENT ILLNESS: This is a 62-year-old female patient for whom a Neurology consultation was requested because the patient indicates her memory is not very good. She indicated it is going on for several weeks. She does not know whether short-term and long-term memory is particularly affected. It is also associated with some generalized malaise. She was admitted because she was having chest pain which was radiating to the left upper extremity. She has a history of coronary artery disease in the past. In fact, she had a bypass surgery. REVIEW OF SYSTEMS: Positive for being diabetic. She says that she has some ulcer on the foot. She has a history of hypertension and her blood pressure was increased here. She had a problem with the neck in the past. She had bladder surgery in the past. She has a history of TIA in the past, but is not a very well-defined history. She is on Zoloft, but she does not know whether she is depressed or not. She does have a history of hypothyroidism. This was her relevant 14-point review of system. Rest of the 14-point review of system was carried out and was noncontributory. PAST MEDICAL HISTORY: Positive for hypertension. FAMILY HISTORY: Negative for early age strokes. SOCIAL HISTORY: She does not smoke or drink alcohol. PHYSICAL EXAMINATION: Indicate she is alert and responsive. She can tell me what month it is. She could not tell me the exact date. She can name the president. Her speech looks intact. She is oriented. Cranial nerve examination 2-12 looks unremarkable. Strength, sensation, reflexes and tone is symmetrical. There is no cerebellar sign. There is no papilledema. There is no meningeal sign. She is a moderately well-developed individual who does not have any dysmorphic features of eyes, ears and face. Her vision and hearing looks adequate. Cardiac examination is unremarkable. No respiratory difficulty or rhonchi was noticed. Her pulses are palpable. She has no edema, cyanosis or jaundice. Blood pressure is 108/46, pulse is 61, temperature is 97.7. LABORATORY DATA: Indicate a white count of 6.3 and sodium is a trace low at 133. Her TSH is trace high. [place] [address] CONSULTATION Name: DILIP VÁZQUEZ Room: [address] IN M.R.#: [id number] Admission: 05/29/18 Attend Phys: Sammy Camp MD Discharge: 05/31/18 Date of : 53 Report #: [id number] IMPRESSION: It is unlikely that there is any neurological etiology for the patient's generalized fatigue. I agree with workup, the systemic problems as well as any cardiac etiology for the patient's chest pain. She is complaining of memory disturbances and because of that it will be desirable to get the MRI done. I discussed that aspect with the patient and the patient does want to proceed with it and I will get an MRI done. We will see what it shows. She is going to have a history professor see her. She wanted some Valium before the MRI and I discussed the potential side effect and she wants to take that. We will go ahead and give her Valium to see how she does with it. Thank you very much for this referral. <ELECTRONICALLY SIGNED> By: Binh Barger MD 06/05/18 1733 1206 [id number] Barger MD /nt
== END 2018-05-31 17:30 | disposition home health service (06) | DRG 637 ==
LOC: M.ERS 03:53 → M.2W 04:48 → M.TBA-ER 04:48 → M.2W 08:24
PROVIDERS: Emergency Medicine Emergency Medical Services; Internal Medicine; ADMIT Internal Medicine
DX: E11.00 Type 2 diabetes mellitus with hyperosmolarity without nonketotic hyperglycemic-hyperosmolar coma (NKHHC) (principal); G93.41 Metabolic encephalopathy; K21.9 Gastro-esophageal reflux disease without esophagitis; I10 Essential (primary) hypertension; L89.892 Pressure ulcer of other site, stage 2; I25.10 Atherosclerotic heart disease of native coronary artery without angina pectoris; I16.0 Hypertensive urgency; R41.3 Other amnesia; E03.9 Hypothyroidism, unspecified; E11.40 Type 2 diabetes mellitus with diabetic neuropathy, unspecified; E78.5 Hyperlipidemia, unspecified; Z95.1 Presence of aortocoronary bypass graft; Z86.73 Personal history of transient ischemic attack (TIA), and cerebral infarction without residual deficits; Z95.5 Presence of coronary angioplasty implant and graft; Z87.442 Personal history of urinary calculi; Z98.1 Arthrodesis status; Z87.81 Personal history of (healed) traumatic fracture; Z90.49 Acquired absence of other specified parts of digestive tract; Z79.4 Long term (current) use of insulin; Z79.02 Long term (current) use of antithrombotics/antiplatelets; Z79.82 Long term (current) use of aspirin; Z79.899 Other long term (current) drug therapy; Z88.8 Allergy status to other drugs, medicaments and biological substances

== ENCOUNTER 2021-05-30 18:52 | Observation (INO) | payer MEDICARE ==
[~2021-05-30] VITALS: Ht 157.5 cm; Wt 62.1 kg
[~2021-05-30 18:52] MED LIST changes: +SYNTHROID50 MCG PO
[2021-05-30 18:59] VITALS: BP 130/45
[2021-05-30 19:38] LABS: ABSOLUTE BASOPHILS 0.1 thou/uL (0.0-0.2); ABSOLUTE NEUTROPHILS 10.9 thou/uL (1.6-8.1); BASOPHILS 0.6 %; EOSINOPHILS 0.1 %; HEMATOCRIT 32.8 % (37.0-47.0); HEMOGLOBIN 11.2 gm/dL (12.0-15.0); LYMPHOCYTES 7.6 %; MCH 30.9 pg (26.0-34.0); MCHC 34.3 g/dL (28.0-37.0); MCV 90.3 fL (80.0-100.0); MONOCYTES 8.1 %; MPV 7.8 fl. (7.2-11.1); NUCLEATED RBCS 0 /100WBC; PLATELET COUNT* 231 thou/uL (150-400); POLYS 83.6 %; RBC 3.63 mil/uL (4.20-5.00); RDW-CV 13.8 % (10.5-14.5)
[2021-05-30 19:46] LABS: CALCIUM 8.8 mg/dL (8.5-10.1); CREATININE 0.9 mg/dL (0.6-1.3); POTASSIUM 3.7 mmol/L (3.5-5.1)
[2021-05-30 19:50] LABS: ALBUMIN 3.5 g/dL (3.4-5.0); TOTAL PROTEIN 7.5 g/dL (6.4-8.2)
[2021-05-30 20:23] LABS: URINE BILIRUBIN NEGATIVE (Negative); URINE BLOOD TRACE (Negative); URINE CLARITY CLEAR; URINE COLOR YELLOW; URINE GLUCOSE-RANDOM TRACE (Negative); URINE KETONES 1+ (Negative); URINE LEUKOCYTES-REFLEX TRACE (Negative); URINE NITRITE-REFLEX NEGATIVE (Negative); URINE PROTEIN NEGATIVE (Negative)
[2021-05-30 20:33] LABS: HYALINE CASTS >10 Many /LPF (None Seen); SQUAMOUS 0-3 Few /LPF (0-3)
[2021-05-30 20:34] LABS: BACTERIA-REFLEX 1-9 Few /HPF (None Seen); MUCUS 0-3 Light strn/LPF (None Seen)
[2021-05-30 20:35] LABS: AMORPHOUS PHOSPHATES Few /LPF (None Seen); URINE RBC 0-2 Rare /HPF (0-2); URINE WBC-REFLEX 6-15 Few /HPF (0-5)
[2021-05-30 22:57] VITALS: BP 133/72
[2021-05-31] VITALS (8 sets, daily range): BP systolic 117–170; BP diastolic 35–80
[2021-06-01 02:30] VITALS: BP 116/49
[2021-06-01 06:00] VITALS: BP 150/65
[2021-06-01] MEDS ORDERED: SENEXON-S 50-81 EACH PO (11:07)
[2021-06-01] MEDS ORDERED: MIRALAX17 GM PO (11:07)
[2021-06-01] MEDS ORDERED: LANTUS100 UNIT/M SUBQ (11:07)
[2021-06-01 11:52] VITALS: BP 181/73
[2021-06-01 18:02] VITALS: BP 181/73
[2021-06-01 18:11] VITALS: BP 159/60
== END 2021-06-01 18:08 | disposition home or self-care (01) ==
LOC: M.ERS 18:52 → M.TBA-ER 21:30
PROVIDERS: Physician Assistant; ADMIT Internal Medicine; ATTEND Internal Medicine
DX: K56.41 Fecal impaction (principal); K52.9 Noninfective gastroenteritis and colitis, unspecified; Z20.822 Contact with and (suspected) exposure to COVID-19; I25.10 Atherosclerotic heart disease of native coronary artery without angina pectoris; E11.9 Type 2 diabetes mellitus without complications; I10 Essential (primary) hypertension; Z79.4 Long term (current) use of insulin; Z86.73 Personal history of transient ischemic attack (TIA), and cerebral infarction without residual deficits; Z90.49 Acquired absence of other specified parts of digestive tract; Z98.890 Other specified postprocedural states; Z79.899 Other long term (current) drug therapy; Z79.02 Long term (current) use of antithrombotics/antiplatelets; Z88.5 Allergy status to narcotic agent; Z88.8 Allergy status to other drugs, medicaments and biological substances

== ENCOUNTER 2021-06-11 07:48 | Emergency (ER) | payer MEDICARE ==
[~2021-06-11] VITALS: Ht 157.5 cm; Wt 63.5 kg
[~2021-06-11 07:48] MED LIST changes: +LANTUS100 UNIT/M SUBQ; +MIRALAX17 GM PO; +SENEXON-S 50-81 EACH PO
[2021-06-11 10:38] LABS: ABSOLUTE LYMPHOCYTES 1.5 thou/uL (0.8-5.3); ABSOLUTE MONOCYTES 0.5 thou/uL (0.0-1.2); ABSOLUTE NEUTROPHILS 5.5 thou/uL (1.6-8.1); BASOPHILS 0.5 %; EOSINOPHILS 0.5 %; HEMATOCRIT 37.5 % (37.0-47.0); HEMOGLOBIN 12.7 gm/dL (12.0-15.0); LYMPHOCYTES 19.9 %; MCH 30.9 pg (26.0-34.0); MCHC 33.8 g/dL (28.0-37.0); MCV 91.5 fL (80.0-100.0); MONOCYTES 6.4 %; MPV 7.3 fl. (7.2-11.1); NUCLEATED RBCS 0 /100WBC; PLATELET COUNT* 210 thou/uL (150-400); POLYS 72.7 %; RDW-CV 14.6 % (10.5-14.5); WBC 7.6 thou/uL (4.0-11.0)
[2021-06-11 10:46] LABS: CALCIUM 9.3 mg/dL (8.5-10.1); CREATININE 0.8 mg/dL (0.6-1.3); POTASSIUM 4.6 mmol/L (3.5-5.1)
[2021-06-11 10:50] LABS: ALBUMIN 3.8 g/dL (3.4-5.0); TOTAL BILIRUBIN 0.5 mg/dL (<0.1-1.0); TOTAL PROTEIN 8.3 g/dL (6.4-8.2)
[2021-06-11 12:43] LABS: URINE BILIRUBIN NEGATIVE (Negative); URINE BLOOD TRACE (Negative); URINE CLARITY CLEAR; URINE COLOR YELLOW; URINE GLUCOSE-RANDOM 1+ (Negative); URINE KETONES 1+ (Negative); URINE LEUKOCYTES-REFLEX NEGATIVE (Negative); URINE NITRITE-REFLEX NEGATIVE (Negative); URINE PROTEIN NEGATIVE (Negative); URINE SPECIFIC GRAVITY 1.025 (1.005-1.030); URINE UROBILINOGEN 0.2 E.U./dl (0.2-1.0)
[2021-06-11 13:10] VITALS: BP 147/62
--- NOTE | 2021-06-11 16:23 | EKG ---
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: : 1955 Requested By: Elaine Oneill Order Number: [id number] MD: Jose Armando Heaton Measurements Intervals [place] Rate: 77 P: 71 CA: 144 QRS: 27 QRSD: 88 T: 49 QT: 386 QTc: 437 Interpretive Statements Sinus rhythm Probable left atrial enlargement Compared to ECG 05/29/2018 03:58:36 T-wave abnormality no longer present Electronically Signed On 06-11-2021 16:23:10 CDT by Jose Armando Heaton [email or web address] <ELECTRONICALLY SIGNED> By: Jose Armando Heaton MD, [facility] 06/11/21 1623 1029 1029 Jose Armando Heaton MD, [facility] /EPI
== END 2021-06-11 13:12 | disposition home or self-care (01) ==
LOC: M.ERS 07:48
PROVIDERS: Physician Assistant
DX: R53.1 Weakness (principal); Z20.822 Contact with and (suspected) exposure to COVID-19; R11.2 Nausea with vomiting, unspecified; R61 Generalized hyperhidrosis; R41.0 Disorientation, unspecified; E11.9 Type 2 diabetes mellitus without complications; I10 Essential (primary) hypertension; Z90.49 Acquired absence of other specified parts of digestive tract; Z95.5 Presence of coronary angioplasty implant and graft; Z86.73 Personal history of transient ischemic attack (TIA), and cerebral infarction without residual deficits; Z98.890 Other specified postprocedural states; F03.90 Unspecified dementia, unspecified severity, without behavioral disturbance, psychotic disturbance, mood disturbance, and anxiety; Z79.899 Other long term (current) drug therapy; Z79.4 Long term (current) use of insulin; Z79.82 Long term (current) use of aspirin; Z88.5 Allergy status to narcotic agent; Z88.8 Allergy status to other drugs, medicaments and biological substances